=== PATIENT | female | born 1995 | race Caucasian/White ===

== ENCOUNTER 2024-09-19 23:08 | Emergency (ER) | payer MEDICAID ==
[~2024-09-19] VITALS: Ht 154.9 cm; Wt 80.0 kg
[2024-09-19 23:20] VITALS: TEMP 36.9; O2SAT 100
[2024-09-20 00:13] LABS: BASOPHILS % 0.5 % (0.0-2.0); EOSINOPHILS % 3.8 % (0.0-5.0); HEMATOCRIT. 34.9 % (36.0-48.0); HEMOGLOBIN. 12.0 g/dL (12.0-16.0); LYMPHOCYTES % 31.8 % (20.0-50.0); MEAN PLATELET VOLUME 9.0 fl (7.4-10.4); MONOCYTES % 5.7 % (2.0-8.0); NEUTROPHILS % 58.2 % (40.0-76.0); PLATELET 241 x1000/uL (130-400); RED BLOOD CELL COUNT 3.91 mill/uL (4.2-5.4); RED CELL DISTRIBUTION WIDTH 13.6 % (11.6-14.6)
[2024-09-20 00:31] LABS: CREATININE 0.6 mg/dL (0.6-1.0); UREA NITROGEN BLOOD 10 mg/dL (9-23)
[2024-09-20 00:45] LABS: B-HCG QUANTITATIVE 15088 mIU/mL (<6)
[2024-09-20 01:35] VITALS: BP 113/74; PULSE 65; RESP 18; O2SAT 100
== END 2024-09-20 02:25 | disposition home or self-care (01) ==
LOC: ER 23:08
DX: O20.0 Threatened abortion (principal); Z3A.01 Less than 8 weeks gestation of pregnancy
CPT/HCPCS: 36415; 76801; 80048; 84702; 85025; 86850; 86900; 99284

== ENCOUNTER 2024-09-29 09:02 | Inpatient (IN) | payer MEDICAID, OTHER ==
[~2024-09-29] VITALS: Ht 162.6 cm; Wt 78.9 kg
[2024-09-29 09:04] VITALS: O2SAT 100
[2024-09-29 09:36] LABS: BASOPHILS % 0.5 % (0.0-2.0); EOSINOPHILS % 1.8 % (0.0-5.0); HEMATOCRIT. 34.4 % (36.0-48.0); HEMOGLOBIN. 11.8 g/dL (12.0-16.0); LYMPHOCYTES % 24.2 % (20.0-50.0); MEAN PLATELET VOLUME 9.1 fl (7.4-10.4); MONOCYTES % 4.0 % (2.0-8.0); NEUTROPHILS % 69.5 % (40.0-76.0); PLATELET 266 x1000/uL (130-400); RED BLOOD CELL COUNT 3.91 mill/uL (4.2-5.4); RED CELL DISTRIBUTION WIDTH 13.6 % (11.6-14.6)
[2024-09-29 09:57] LABS: CREATININE 0.6 mg/dL (0.6-1.0); HCG SCREEN POSITIVE; UREA NITROGEN BLOOD 10 mg/dL (9-23)
[2024-09-29] MEDS: SODIUM CHLORIDE 0.9% 1,000 ML IV ONE (10:10)
[2024-09-29 11:17] LABS: B-HCG QUANTITATIVE 3626 mIU/mL (<6)
[2024-09-29] MEDS ORDERED: DEXAMETHASONE 4MG/ML 1ML VIAL ONE (12:21)
[2024-09-29] MEDS ORDERED: PROPOFOL 200MG/20ML VIAL IV ONE ×2 (12:21→13:30)
[2024-09-29] MEDS ORDERED: LIDOCAINE HCL 1% 10 MG/ML 10ML VIAL ONE (12:21)
[2024-09-29] MEDS ORDERED: ONDANSETRON HCL 4MG/2ML INJ ONE (12:21)
[2024-09-29] MEDS ORDERED: FENTANYL CITRATE/PF 50MCG/ML 2ML VIAL ONE (12:22)
[2024-09-29] MEDS ORDERED: ALBUMIN HUMAN 12.5G/250ML (5%) IV ONE (12:24)
[2024-09-29] MEDS ORDERED: EPINEPHRINE 0.1MG/ML (1:10,000) 10ML SYR ONE (12:26)
[2024-09-29] MEDS ORDERED: ACETAMINOPHEN 1000MG/100ML 100 ML IV ONE (12:30)
[2024-09-29] MEDS ORDERED: FAMOTIDINE 20MG/2ML VIAL IV ONE (12:31)
[2024-09-29] MEDS ORDERED: OXYTOCIN 10 UNITS/ML 1ML ONE (13:18)
[2024-09-29] MEDS ORDERED: MIDAZOLAM HCL 2 MG/2 ML VIAL ONE (13:25)
[2024-09-29] MEDS ORDERED: ONDANSETRON HCL 4MG/2ML INJ IV PRN (14:00)
[2024-09-29 22:00] VITALS: BP 94/62; PULSE 82; RESP 18; TEMP 36.5292
[2024-09-29] MEDS: IBUPROFEN 800MG TABLET PO SCH (22:00)
[2024-09-30] VITALS: BP_SYST 132; BP_SYST 90; BP_DIAS 49; BP_DIAS 52; PULSE 85; PULSE 94; RESP 18; TEMP 36.5; TEMP 36.7; O2SAT 98
[2024-09-30 04:00] VITALS: BP_SYST 102; BP_SYST 89; BP_DIAS 53; BP_DIAS 62; PULSE 100; PULSE 88; RESP 18; TEMP 36.4; TEMP 36.5; O2SAT 97; O2SAT 99
[2024-09-30 08:00] VITALS: BP 98/59; PULSE 90; RESP 17; TEMP 36.5; O2SAT 99
[2024-09-30 12:00] VITALS: BP 100/56; PULSE 94; RESP 17; TEMP 37.1; O2SAT 97
[2024-09-30] MEDS ORDERED: IBUP-2030 PO (12:14)
[2024-09-30 13:12] VITALS: BP 100/56; PULSE 94; RESP 17; TEMP 98.8
== END 2024-09-30 13:33 | disposition home or self-care (01) | DRG 543 ==
LOC: ER 09:02 → 7EST 11:23 → ENRESERV 13:25
PROVIDERS: ADMIT Obstetrics & Gynecology; ATTEND Obstetrics & Gynecology
PROC: 10D17ZZ Extraction of Products of Conception, Retained, Via Natural or Artificial Opening (ICD-10-PCS; principal; 2024-09-29)
DX: O03.4 Incomplete spontaneous abortion without complication (principal); Z3A.10 10 weeks gestation of pregnancy
CPT/HCPCS: 36415; 76801; 80048; 82962; 84702; 84703; 85014; 85018; 85025; 86850; 86900; 88305; 99285; J1100; J1308; J2003; J2250; J2405; J2704; J3010; J3490; J7030; P9041; J0131

== ENCOUNTER 2024-10-01 10:35 | Emergency (ER) | payer MEDICAID ==
[~2024-10-01] VITALS: Ht 154.9 cm; Wt 80.9 kg
[~2024-10-01 10:35] MED LIST: IBUP-2030 PO
[2024-10-01 10:39] VITALS: O2SAT 100
[2024-10-01 11:03] LABS: BASOPHILS % 0.6 % (0.0-2.0); EOSINOPHILS % 3.6 % (0.0-5.0); HEMATOCRIT. 24.3 % (36.0-48.0); HEMOGLOBIN. 8.3 g/dL (12.0-16.0); LYMPHOCYTES % 31.1 % (20.0-50.0); MEAN PLATELET VOLUME 8.7 fl (7.4-10.4); MONOCYTES % 4.6 % (2.0-8.0); NEUTROPHILS % 60.1 % (40.0-76.0); PLATELET 224 x1000/uL (130-400); RED BLOOD CELL COUNT 2.66 mill/uL (4.2-5.4); RED CELL DISTRIBUTION WIDTH 13.8 % (11.6-14.6)
[2024-10-01 11:25] LABS: CREATININE 0.6 mg/dL (0.6-1.0)
[2024-10-01 11:26] LABS: UREA NITROGEN BLOOD 7 mg/dL (9-23)
[2024-10-01 11:43] LABS: TROPONIN I HIGH SENSITIVITY < 4 ng/L (3.0-34)
[2024-10-01 12:56] LABS: HCG SCREEN POSITIVE
[2024-10-01] MEDS ORDERED: IOHEXOL-350 100 ML BOTTLE ONE (13:36)
[2024-10-01 13:40] VITALS: BP 115/64; PULSE 78; RESP 18; TEMP 36.4; O2SAT 95
[2024-10-01 13:49] VITALS: BP 115/64; PULSE 77; RESP 18; TEMP 36.3068
[2024-10-01 16:00] VITALS: BP 107/63; PULSE 83; RESP 18; TEMP 36.5; O2SAT 96
== END 2024-10-01 13:12 | disposition admitted as inpatient to this hospital (09) ==
LOC: ER 10:35 → EDBEDREQTM 12:16 → EDBEDREQ 12:16 → ENRESERV 12:25 → 6WST 13:42 → UNDOADMIN 13:42 → UNDODISIN 18:50
DX: R07.9 Chest pain, unspecified (principal); N93.8 Other specified abnormal uterine and vaginal bleeding; Z79.899 Other long term (current) drug therapy
CPT/HCPCS: 99285; 71275; 71045; 80048; 84703; 85025; 85379; 84484; 36415; 93005; Q9967; A4606